=== PATIENT | female | born 1960 | race American Indian/Alaskan Native ===

== ENCOUNTER 2017-03-18 11:09 | Emergency (ER) | payer MEDICAID ==
[2017-03-18 11:38] VITALS: BP 142/73
--- NOTE | 2017-03-18 11:41 | Emergency Department Report ---
Chief Complaint: Chest Pain Stated Complaint: HEART PAIN Time Seen by Provider: 03/18/17 11:37 - HPI History of Present Illness: PT c/o intermittent chest pain that started yesterday while cooking. pt states she is not sure if her pain is stress related. - ROS Review of Systems: + chest pain + stress + fatigue - Exam Vital Signs: Vital Signs 03/18/17 11:34 Temperature 98.5 F Pulse Rate 68 Respiratory 18 Rate Blood Pressure 142/73 O2 Sat by Pulse 99 Oximetry Physical Exam: pt looks well, non toxic. no acute distress steady gait no focal weakness noted MSE screening note: Focused history and physical exam performed. Due to findings the following was ordered: ekg, labs, xr ED Disposition for MSE Condition: Stable
--- NOTE | 2017-03-18 12:04 | XRay Report ---
ROUTINE CHEST, TWO VIEWS: HISTORY: chest pain. The trachea, heart, mediastinal contour, lung reese and bony thorax are unremarkable. IMPRESSION: Unremarkable chest x-ray.
[2017-03-18 12:21] LABS: INR 1.06 (0.87-1.13)
[2017-03-18 12:22] LABS: Basophils % (Auto) 0.8 % (0.0-1.8); Eosinophils % (Auto) 2.6 % (0.0-4.3); Hematocrit 36.8 % (30.3-42.9); Hemoglobin 12.3 gm/dl (10.1-14.3); Mean Corpuscular HGB Conc 33 % (30-34); Mean Corpuscular Hemoglobin 28 pg (28-32); Mean Corpuscular Volume 84 fl (79-97); Partial Thromboplastin Time 28.8 Sec. (24.2-36.6); Platelet Count 347 K/mm3 (140-440); Red Blood Count 4.37 M/mm3 (3.65-5.03); Red Cell Distribution Width 13.6 % (13.2-15.2); White Blood Count 8.4 K/mm3 (4.5-11.0)
[2017-03-18 12:26] LABS: Alanine Aminotransferase 14 units/L (7-56); Albumin 3.8 g/dL (3.9-5); Albumin/Globulin Ratio 1.4 %; Alkaline Phosphatase 76 units/L (35-129); Anion Gap 16 mmol/L; BUN/Creatinine Ratio 13.33; Blood Urea Nitrogen 8 mg/dL (7-17); Calcium 9.2 mg/dL (8.4-10.2); Carbon Dioxide 29 mmol/L (22-30); Chloride 101.3 mmol/L (98-107); Glucose 92 mg/dL (65-100); Potassium 3.5 mmol/L (3.6-5.0); Sodium 143 mmol/L (137-145); Total Protein 6.5 g/dL (6.3-8.2)
--- NOTE | 2017-03-19 14:39 | ED Elopement Review ---
ED Pt Elopement review - Results review Lab results: Laboratory Tests 03/18/17 03/18/17 03/18/17 11:41 11:41 11:41 WBC 8.4 RBC 4.37 Hgb 12.3 Hct 36.8 MCV 84 MCH 28 MCHC 33 RDW 13.6 Plt Count 347 Lymph % (Auto) 41.7 H [place] % (Auto) 5.8 Eos % (Auto) 2.6 Baso % (Auto) 0.8 Lymph # 3.5 [place] # 0.5 Eos # 0.2 Baso # 0.1 Seg Neutrophils % 49.1 Seg Neutrophils # 4.1 PT 13.7 INR 1.06 APTT 28.8 Sodium Potassium Chloride Carbon Dioxide Anion Gap BUN Creatinine Estimated GFR BUN/Creatinine Ratio Glucose Calcium Total Bilirubin AST ALT Alkaline Phosphatase Troponin T < 0.010 NT-Pro-B Natriuret Pep Total Protein Albumin Albumin/Globulin Ratio 03/18/17 03/18/17 11:52 17:15 WBC RBC Hgb Hct MCV MCH MCHC RDW Plt Count Lymph % (Auto) [place] % (Auto) Eos % (Auto) Baso % (Auto) Lymph # [place] # Eos # Baso # Seg Neutrophils % Seg Neutrophils # PT INR APTT Sodium 143 Potassium 3.5 L Chloride 101.3 Carbon Dioxide 29 Anion Gap 16 BUN 8 Creatinine 0.6 L Estimated GFR > 60 BUN/Creatinine Ratio 13.33 Glucose 92 Calcium 9.2 Total Bilirubin 0.30 AST 14 ALT 14 Alkaline Phosphatase 76 Troponin T < 0.010 NT-Pro-B Natriuret Pep 58.03 Total Protein 6.5 Albumin 3.8 L Albumin/Globulin Ratio 1.4 - Call Back decision Pt Call Back Decision: Call pt to return to ED [facility] (chest pain may require inpatient evaluation)
== END 2017-03-18 18:15 | disposition left against medical advice (07) ==
LOC: ED 11:09
DX: R07.9 Chest pain, unspecified (principal); Z53.21 Procedure and treatment not carried out due to patient leaving prior to being seen by health care provider
CPT/HCPCS: 36415; 71020; 80053; 83880; 84484; 85025; 85610; 85730; 93005; 93010